=== PATIENT | male | born 1990 | race Caucasian/White ===

== ENCOUNTER 2022-02-02 17:14 | Emergency (ER) | payer MEDICAID ==
[~2022-02-02] VITALS: Ht 172.7 cm; Wt 69.0 kg
[2022-02-02] MEDS ORDERED: BACITRACIN ZINC OINT UDPKT TOP ONE (17:45)
[2022-02-02] MEDS ORDERED: LIDOCAINE HCL/PF 1% 10 MG/ML 5ML VIAL INFIL ONE (17:45)
[2022-02-02] MEDS ORDERED: SODIUM CHLORIDE 0.9% 1,000 ML IV ONE (17:45)
[2022-02-02] MEDS ORDERED: TETANUS, DIPHTHERIA, PERTUSSIS VAC/PF 0.5ML (>10YR OLD) IM ONE (17:45)
[2022-02-02 18:00] LABS: BASOPHILS % 0.7 % (0.0-2.0); EOSINOPHILS % 1.3 % (0.0-5.0); HEMATOCRIT. 37.9 % (42.0-52.0); MEAN CORPUSCULAR HEMOGLOBIN 30.5 pg (28.0-32.0); MEAN CORPUSCULAR VOLUME 89.1 fL (80.0-94.0); MEAN PLATELET VOLUME 9.4 fl (7.4-10.4); MONOCYTES % 6.2 % (2.0-8.0); NEUTROPHILS % 52.8 % (40.0-76.0); PLATELET 287 x1000/uL (130-400); RED BLOOD CELL COUNT 4.25 mill/uL (4.7-6.1); RED CELL DISTRIBUTION WIDTH 13.5 % (11.6-14.6)
[2022-02-02 18:08] LABS: CHLORIDE 107 mEq/L (98-107)
[2022-02-02] MEDS ORDERED: LIDOCAINE HCL/EPINEPHRINE 1%-EPI 1:100,000 50 ML VIAL INFIL ONE (18:15)
[2022-02-02] MEDS ORDERED: CEPHALEXIN 250MG CAPSULE PO ONE (19:15)
[2022-02-02] MEDS ORDERED: CEPH500C2 MT (19:29)
[2022-02-02 19:30] VITALS: BP 105/70
== END 2022-02-02 20:36 | disposition home or self-care (01) ==
LOC: ER 17:14
DX: S61.412A Laceration without foreign body of left hand, initial encounter (principal); W26.8XXA Contact with other sharp object(s), not elsewhere classified, initial encounter; Y93.89 Activity, other specified; Y92.89 Other specified places as the place of occurrence of the external cause; Y99.8 Other external cause status
CPT/HCPCS: 12002; 36415; 80053; 85025; 90471; 90715; 96360; 96361; 99283; J7030